=== PATIENT | male | born 1945 | race Caucasian/White ===

== ENCOUNTER → 2016-12-01 | Outpatient (CLI) | payer OTHER | LOC: BHFA 11:00 | PROVIDERS: ATTEND Internal Medicine Cardiovascular Disease | DX: I47.2 Ventricular tachycardia (principal); I49.3 Ventricular premature depolarization ==

== ENCOUNTER → 2016-12-08 | Outpatient (CLI) | payer OTHER ==
[~2016-12-08] MED LIST: GADOBUTROL 10 ML VIAL IVP ONE
--- NOTE | 2016-12-09 09:50 | MR ---
MRI Cardiac, Without and With Contrast at 1427 hours History: Ventricular tachycardia. Evaluate for ARVD. Technique: MRI was performed of the heart using a 1.5 Mai MRI system. Long and short-axis images we re obtained of the heart with FIESTA, double inversion-recovery, and triple inversion-recovery images . Multiphase postcontrast imaging was performed after 10 mL of Gadavist IV contrast. Delayed postcont rast imaging was also obtained in both planes. Findings: Cardiac chambers are normal in size. Myocardium in the left and right ventricles is normal in thickness and signal intensity. No focal wall motion abnormalities are visualized. No evidence for delayed myocardial enhancement. No evidence for pericardial effusion. Tricuspid appearance to the ao rtic valve. No evidence for thoracic aortic aneurysm. Impression: Normal MRI cardiac without and with contrast.
== END ==
LOC: FIMAGING 13:19
PROVIDERS: ATTEND Internal Medicine Cardiovascular Disease
DX: I47.2 Ventricular tachycardia (principal)
CPT/HCPCS: 75561; A9585

== ENCOUNTER 2016-12-20 07:05 | Observation (INO) | payer OTHER ==
[2016-12-20] MEDS ORDERED: MIDAZOLAM 2 MG/2 ML VIAL IVP ONE (07:13)
[2016-12-20] MEDS ORDERED: NS 1,000 ML IV ONE (07:13)
--- NOTE | 2016-12-20 07:43 | CPEKG ---
Heart Rate: 56 RR Interval: 1071 P-R Interval: 220 QRSD Interval: 86 QT Interval: 428 QTC Interval: 414 P [place]: 0 QRS [place]: -13 T Wave [place]: 28 EKG Severity - ABNORMAL ECG - EKG Impression: SINUS RHYTHM EKG Impression: FIRST DEGREE AV BLOCK Electronically Signed By: Jaguar Melo 20-Dec-2016 08:58:55
[2016-12-20] MEDS ORDERED: PROPOFOL/EMULSION 500 MG/50 ML BOTTLE IV ONE ×4 (07:44→09:43)
[2016-12-20] MEDS ORDERED: LIDOCAINE 2% 100 MG/5 ML SYR IVP ONE (07:45)
[2016-12-20] MEDS ORDERED: LIDOCAINE 1% 30 ML SDV ONE (07:55)
[2016-12-20] MEDS ORDERED: BUPIVACAINE 0.5% 30 ML SDV ONE (07:55)
[2016-12-20] MEDS ORDERED: HEPARIN 10,000 UNIT/10 ML MDV ONE (07:55)
[2016-12-20 07:59] LABS: % IMMATURE GRANULYOCYTES 0.2 % (0.0-1.1); ABSOLUTE IMMATURE GRANULOCYTES 0.01 10^3/uL (0.00-0.10); ADD DIFF? NO; ADD MORPH? NO; ADD SCAN? NO; ATYPICAL LYMPHOCYTE FLAG 0 (0-99); FRAGMENT RBC FLAG 0 (0-99); HEMATOCRIT 45.5 % (40.0-51.0); HEMOGLOBIN 15.5 g/dL (13.7-17.5); LEFT SHIFT FLG 0 (0-99); LIPEMIA HEMOLYSIS FLAG 90 (0-99); MEAN CELL HEMOGLOBIN 31.3 pg (27.9-34.1); MEAN CELL HEMOGLOBIN CONCENTR. 34.1 g/dL (32.4-36.7); MEAN CELL VOLUME 91.9 fL (81.5-99.8); MEAN PLATELET VOLUME 10.4 fL (8.7-11.7); PLATELET CLUMPS FLAG 0 (0-99); PLATELET COUNT 186 10^3/uL (150-400); RED BLOOD CELL COUNT 4.95 10^6/uL (4.40-6.38); RED CELL DISTRIBUTION WIDTH 13.4 % (11.5-15.2)
[2016-12-20 08:14] LABS: INR 1.06 (0.83-1.16); PROTIME(PATIENT) 13.7 SEC (12.0-15.0)
[2016-12-20 08:15] LABS: APTT 28.1 SEC (23.0-38.0)
[2016-12-20] MEDS ORDERED: ISOPROTERENOL HCL 0.2 MG/ML 5ML AMP ONE (09:13)
[2016-12-20 09:30] LABS: ANION GAP 11 mEq/L (8-16); CALCIUM 9.3 mg/dL (8.5-10.4); CARBON DIOXIDE 19 mEq/l (22-31); CHLORIDE 112 mEq/L (97-110); CREATININE 0.9 mg/dL (0.7-1.3); GLOMERULAR FILTRATION RATE > 60; GLUCOSE 97 mg/dL (70-100); POTASSIUM 4.6 mEq/L (3.5-5.2); SODIUM 142 mEq/L (134-144)
[2016-12-20] MEDS ORDERED: ATROPINE SULFATE 1 MG/10 ML SYR ONE (11:38)
[2016-12-20] MEDS ORDERED: ALBUTEROL 60 PUFFS/8 GM MDI IH PRN (12:02)
--- NOTE | 2016-12-20 12:02 | EPPROC ---
Electrophysiology Procedure Note: ELECTROPHYSIOLOGIC STUDY AND CATHETER MEDIATED ABLATION OF PREMATURE VENTRICULAR BEATS ORIGINATING IN THE RIGHT VENTRICULAR OUTFLOW TRACT: Procedures performed: 39332-32 EP evaluation with RA/RV/LA pace/record, with arrhythmia induction 23374-54 EP evaluation with RA/RV pace record, insert/reposition catheter, with arrhythmia induction 95248 Intracardiac catheter ablation, VT arrhythmogenic focus Fluoroscopy INDICATION: Recurrent PVC Nonsustained VT Near syncope The patient arrived in the Electrophysiology Laboratory in the fasting state. The right clavicular region, right groin, and left groin area were prepped and draped in the usual sterile manner. Appropriate non-invasive blood pressure, pulse oximetry and end-tidal CO2 monitoring was established. Anesthesiologist Dr. Arie Parsons administered propofol sedation. All catheters were placed percutaneously using the modified Seldinger technique , and advanced into position under fluoroscopic guidance. One #7 Swedish deflectable octapolar electrode catheter was advanced to the His-bundle position via the left femoral vein (2mm spacing; except the proximal ring which was 25cm from the tip used for unipolar recordings). One #7 Swedish deflectable catheter with 10 pairs of electrodes was placed via the right femoral vein into the distal coronary sinus AIV junction . One #4 Swedish sheath was placed into the left femoral artery and was used for continuous arterial blood pressure monitoring and intermittent arterial blood gas determination. Heparin was administered to keep ACT > 200 seconds. Programmed stimulation was performed from the right atrium, right ventricle and CS (left atrium). Parahisian pacing VA block. SCL 1052 ms AH 102 ms, HV 55 ms Antegrade WBB 410 ms, no slow AV Tammy pathway Retrograde (VA) block The patient arrived to the electrophysiology laboratory in normal sinus rhythm with frequent PVC. PVC morphology LBBB inferior axis with QRS transition between V3-V4. QRS duration during PVC 155 ms. PVC frequency increased with phenylephrine boluses. There was a period of idioventricular rhythm with phenylephrine bolus with PVC morphology same as during isolated PVC. Nonsustained VT 130 bpm up to 5 beats was seen to occur spontaneously. A 4 mm Navistar ablation catheter with a magnetic sensor for the Carto 3D electroanatomic mapping system was used for mapping. Mapping (during PVC) of the right ventricular outflow tract earliest ventricular activation at the posterior base of RVOT, rightward of midline. Ventricular activation began 50 ms before the onset of the QRS complex with sharp negative deflection in the unipolar electrode. RF#1 at this site terminated PVC. RF#2 and 3 were applied superior and inferior to RF#1 site. Observation for 45 minutes after the application of radiofrequency current was performed with phenylephrine boluses and during isoproterenol administration at graded doses upto 2 mcg/min, and following discontinuation of isoproterenol. Patient was recovered from anesthesia and further observation continued for 45 minutes with patient fully awake. No spontaneous ventricular extra systoles of the primary pattern seen prior to ablation were induced spontaneously or with ventricular burst pacing. There was no ventricular tachycardia inducible. Rare ventricular extra systoles with different patterns were observed but these were due to catheter manipulation or mechanical contact. The catheters were removed. Protamine was administered. The patient was transferred to the cardiovascular holding area in stable condition. Vascular access sheaths were removed in the holding area. There were no apparent complications. CONCLUSIONS: 1. Premature ventricular beats originating from right ventricular outflow tract rightward of midline, posterior. 2. Successful catheter mediated ablation of the premature ventricular beats. 3. No apparent complications. Patient Problems: Problems Problem Status Onset Ventricular arrhythmia Acute
--- NOTE | 2016-12-20 12:19 | CPEKG ---
Heart Rate: 60 RR Interval: 1000 P-R Interval: 212 QRSD Interval: 84 QT Interval: 416 QTC Interval: 416 P [place]: 9 QRS [place]: -6 T Wave [place]: 31 EKG Severity - ABNORMAL ECG - EKG Impression: SINUS RHYTHM EKG Impression: PROBABLE INFERIOR INFARCT, OLD EKG Impression: FIRST DEGREE AVB Electronically Signed By: Ebenezer Wilson 21-Dec-2016 08:36:17
[2016-12-20] MEDS ORDERED: OXYCODONE/APAP 5/325 TAB PO PRN (12:27)
[2016-12-20] MEDS ORDERED: ACETAMINOPHEN 325 MG TAB PO PRN (12:27)
[2016-12-20] MEDS ORDERED: ONDANSETRON 4 MG/2 ML VIAL IVP PRN (12:27)
[2016-12-20 13:46] LABS: ANION GAP 8 mEq/L (8-16); CALCIUM 8.5 mg/dL (8.5-10.4); CARBON DIOXIDE 24 mEq/l (22-31); CHLORIDE 111 mEq/L (97-110); CREATININE 0.9 mg/dL (0.7-1.3); GLOMERULAR FILTRATION RATE > 60; GLUCOSE 90 mg/dL (70-100); MAGNESIUM 1.8 mg/dL (1.6-2.3); POTASSIUM 4.1 mEq/L (3.5-5.2); SODIUM 143 mEq/L (134-144)
[2016-12-20] MEDS ORDERED: ASPIRIN 81 MG CHEWABLE TAB PO SCH (19:00)
[2016-12-20] MEDS ORDERED: NON-FORMULARY NEW DRUG (Loratadine [Claritin 10 Mg] 10 MG) PO SCH (21:00)
[2016-12-20] MEDS ORDERED: MONTELUKAST SODIUM 10 MG TAB PO SCH (21:00)
[2016-12-20] MEDS ORDERED: NON-FORMULARY NEW DRUG (Dexlansoprazole [Dexilant] 60 MG) PO SCH (21:00)
[2016-12-20] MEDS ORDERED: CETIRIZINE 10 MG TAB PO SCH (21:00)
[2016-12-20] MEDS ORDERED: PANTOPRAZOLE SODIUM 40 MG TAB PO SCH (21:00)
[2016-12-21 05:05] VITALS: RESP 18
[2016-12-21 05:10] LABS: % IMMATURE GRANULYOCYTES 0.1 % (0.0-1.1); ABSOLUTE IMMATURE GRANULOCYTES 0.01 10^3/uL (0.00-0.10); ADD DIFF? NO; ADD MORPH? NO; ADD SCAN? NO; ATYPICAL LYMPHOCYTE FLAG 0 (0-99); FRAGMENT RBC FLAG 0 (0-99); HEMOGLOBIN 14.2 g/dL (13.7-17.5); LEFT SHIFT FLG 0 (0-99); LIPEMIA HEMOLYSIS FLAG 90 (0-99); MEAN CELL HEMOGLOBIN 31.3 pg (27.9-34.1); MEAN CELL HEMOGLOBIN CONCENTR. 33.8 g/dL (32.4-36.7); MEAN CELL VOLUME 92.7 fL (81.5-99.8); MEAN PLATELET VOLUME 10.7 fL (8.7-11.7); PLATELET CLUMPS FLAG 0 (0-99); PLATELET COUNT 177 10^3/uL (150-400); RED BLOOD CELL COUNT 4.53 10^6/uL (4.40-6.38); RED CELL DISTRIBUTION WIDTH 13.5 % (11.5-15.2)
[2016-12-21 05:18] LABS: ANION GAP 8 mEq/L (8-16); CARBON DIOXIDE 25 mEq/l (22-31); CHLORIDE 106 mEq/L (97-110); GLOMERULAR FILTRATION RATE > 60; GLUCOSE 82 mg/dL (70-100); POTASSIUM 4.4 mEq/L (3.5-5.2); SODIUM 139 mEq/L (134-144)
[2016-12-21 05:27] LABS: CREATINE KINASE-MB FRACTION 1.24 ng/mL (0-3.19); TROPONIN I 0.153 ng/mL (0-0.034)
[2016-12-21 05:28] LABS: INR 1.13 (0.83-1.16); PROTIME(PATIENT) 14.4 SEC (12.0-15.0)
[2016-12-21 07:36] VITALS: BP 109/74; PULSE 58; TEMP 98.3; O2SAT 95
[2016-12-21] MEDS ORDERED: ATORVASTATIN CALCIUM 40 MG TAB PO SCH (09:00)
--- NOTE | 2016-12-21 09:05 | CPEKG ---
Heart Rate: 54 RR Interval: 1111 P-R Interval: 196 QRSD Interval: 90 QT Interval: 448 QTC Interval: 425 P [place]: 5 QRS [place]: -13 T Wave [place]: 34 EKG Severity - OTHERWISE NORMAL ECG - EKG Impression: SINUS RHYTHM EKG Impression: VENTRICULAR PREMATURE COMPLEX Electronically Signed By: Jaguar Melo 21-Dec-2016 11:11:44
--- NOTE | 2016-12-21 11:11 | ECHO ---
[id number] + + [address] : : [place] [address] : : [phone] + + Adult Echocardiographic Report + ---------+ :Name: JOSE E ROGER RStudy Date: 12/21/2016 08:25 AM : : Hospital Admission Number: [id number] Jessica merchant: [birth year]: :: 1945 Gender: Male Height: 71 i n : :Age: 71 yrs Race: WH Weight: 178 lb : :Reason For Study: F/U post EP study : : BSA: 2.0 met ers2 : + ---------+ MMode/2D Measurements \T\ Calculations IVSd: 0.84 cm LVIDd: 4.8 cmFS: 40.9 % LVLd ap4: 9.0 cm LVPWd: 0.81 cm LVIDs: 2.8 cmEDV(Teich): 105.7 mlEDV(MOD-sp4): 59.0 ml ESV(Teich): 30.0 ml LVLs ap4: 7.3 cm EF(Teich): 71.6 % ESV(MOD-sp4): 17.0 ml EF(MOD-sp4): 71.2 % SV(MOD-sp4): 42.0 ml Normal Measurement Values: + + :LVIDd (3.5-5.7cm) IVSd (0.6-1.1cm) LVPWd (0.6-1.1cm) Aortic Root (2.0-3.7cm)Left Atrium (1.5-4.0cm): :LV Vol(d) (76-115ml) LV Vol(s) (29-48ml) E[place]ec Fraction (50-65%)PV [place] (0.6- 1.2m/s) TV [place] (0.4-1.0m/s) : :MV E [place] (0.8-1.0m/s)MV A [place] (0.3-1.0m/s)LVOT [place] (0.7-1.2m/s) Asc Ao [place] ( 0.9-1.8m/s) : + + Doppler Measurements \T\ Calculations MV E max chalo: Ao mean PG: PA V2 max: TR max chalo: 66.1 cm/sec 4.7 mmHg 111.3 cm/sec 238.9 cm/sec MV A max chalo: Ao V2 mean: PA max PG: TR max P.5 cm/sec 103.8 cm/sec 5.0 mmHg 22.8 mmHg MV E/A: 0.85 Ao V2 VTI: 32.5 cm RAP systole: 5.0 mmHg RVSP(TR): 27.8 mmHg Left Ventricle The left ventricle is normal in size and function. There is mild concentric left ventricular hypertrophy. Left ventricular systolic function is normal. Ejection Fraction = 70-75%. No regional wall motion abnormalities noted. Right Ventricle The right ventricle is normal in size and function. Atria The left atrial size is normal. Right atrial size is normal. The interatrial septum is intact with no evidence for an atrial septal defect. Mitral Valve Calcification seen on anterior mitral leaflet. There is no evidence of mitral valve prolapse. There is no mitral valve stenosis. Tricuspid Valve Normal tricuspid valve. There is mild tricuspid regurgitation. Right ventricular systolic pressure is normal. Aortic Valve The aortic valve is trileaflet. The aortic valve opens well. There is no aortic stenosis. There is no aortic insufficiency. Pulmonic Valve The pulmonic valve is normal in structure and function. There is no pulmonic valvular regurgitation. Great Vessels The aortic root is normal size. Pericardium/Pleural There is no pericardial effusion. There is a fat pad seen. Conclusion A complete two-dimensional transthoracic echocardiogram was performed (2D, M-mode, Doppler and color flow Doppler). The left ventricle is normal in size and function. Left ventricular systolic function is normal. There is mild concentric left ventricular hypertrophy. Ejection Fraction = 70-75%. Calcification seen on anterior mitral leaflet. There is mild tricuspid regurgitation. Right ventricular systolic pressure is normal. There is a fat pad seen. There is no pericardial effusion. Final Reading Physician: Jaguar Melo MD electronically signed on 12/21/2016 11:10 AM Ordering Physician: Jaguar Melo Performed By: Suzanne Benitze, [facility]
--- NOTE | 2016-12-21 12:23 | GDS ---
[f rep st] DISCHARGE SUMMARY ADMISSION DIAGNOSES: 1. Frequent premature ventricular contractions. 2. Nonsustained ventricular tachycardia. 3. Near syncope. 4. Non flow-limiting coronary artery disease. 5. Hyperlipidemia. DISCHARGE DIAGNOSES: 1. Premature ventricular contractions. 2. Status post electrophysiology study with PVC ablation. 3. Non flow-limiting coronary artery disease. 4. Hyperlipidemia. PROCEDURES DONE DURING HOSPITALIZATION: 1. Electrocardiogram. 2. Electrophysiology study. 3. Successful catheter mediated ablation of premature ventricular beats coming from RV OT. 4. Echocardiogram. BRIEF HISTORY: Please see H and P. The patient is a 71-year-old male who reports tightness in his throat and shortness of breath, underwent coronary catheterization, found that he had non flow-limit ing CAD. He had had an event monitor that showed he had frequent PVCs, with episodes of 10 beaded n onsustained ventricular tachycardia. He was referred to Dr. Melo who evaluated, and felt that he was an appropriate candidate to undergo electrophysiology study, and potentially ablation. HOSPITAL COURSE: Patient was admitted through CVC, prepped for procedure and taken to electrophysio logy suite. There patient underwent electrophysiology study, which successfully identified PVCs tiburcio ginating in the RV OT. Dr. Melo then proceeded on with intervention with successful catheter mediate d ablation of premature ventricular beats. No apparent complications. Patient was transferred back to the CVC and ultimately to the PCU for overnight observation. There he has remained in sinus rhy thm. Denies any chest pain, shortness of breath, or symptoms or lightheadedness. Reports no furthe r episodes of palpitations. Cardiac monitoring showed that he has remained in sinus rhythm with rar e premature ventricular contraction. No other pauses or arrhythmia noted. He has been up walking t he unit without any symptoms. PHYSICAL EXAMINATION: Today, GENERAL APPEARANCE: Tall, well-groomed male. He is alert, oriented to person, place, time, and situation. Appears to be in no acute distress. VITAL SIGNS: Current vital signs are blood pressure 109/74, heart rate is 58, sinus rhythm on the monitor. Respi rations 18, saturating 95% on room air. Temperature 36.8 degree Celsius. HEENT: Head is normoceph alic. Lips and tongue are pink and moist with no signs of cyanosis. Conjunctivae pink. NECK: Tra vilma is midline, +2 carotid pulses bilateral. No auscultated bruits, no jugular vein distention. R ESPIRATORY: Lungs clear to auscultation, no rhonchi, rales, wheezes, no accessory muscle use, no in tercostal muscle retraction. CARDIAC: Regular rate, regular rhythm, S1, S2. No S3, S4, murmur, ru b or gallop noted. ABDOMEN: Soft, nontender, bowel sounds x4 quadrants. No organomegaly and no pa lpable masses. SKIN: [place], warm, dry, no cyanosis, no clubbing, no peripheral edema. Catheter insertion site, bilateral groin sites: No redness, swelling, drainage, ecchymosis or hemat roby noted. No auscultated bruit on either site. VASCULAR: +2 carotid pulses bilateral, +2 radial pulses bilateral, +2 dorsal pedal and posterior tibial pulses bilateral. CMS checks within normal l imits to lower extremity. NEURO: Cranial nerves 2-12 grossly intact. LABORATORY: Current laboratory studies show: WBC of 7.36, hemoglobin of 14.2, hematocrit of 42.0, platelet count 177. INR is 1.13. Sodium 134, potassium 4.4, chloride 106, CO2 22, BUN 23, creatini ne 1.0, glucose 82, calcium 9.0. CK was 55, CK-MB fraction was 1.24. Troponin was 1.53 this mornin g, which was expected to be elevated post ablation. STUDIES: Electrophysiology and ablation as mentioned above, electrocardiogram done today this morni ng shows sinus bradycardia, with noted Q-waves in 2 and AVF, questioning old myocardial infarction. Rare premature ventricular contraction noted. Echocardiogram: Preliminary results: Patient noted to have normal LV systolic function with no wall motion abnormalities. Normal ejection fraction, w ith no significant valvular heart disease. DISCHARGE DISPOSITION: Patient being discharged home in stable condition. He is under activity res trictions of not lifting more than 10 pounds for the next week, no strenuous activity for the next 2 weeks. DISCHARGE MEDICATIONS: Please see discharge medication list. Note, patient has been told that he s hould continue taking anti-platelet therapy of aspirin of 162 mg p.o. daily. DISCHARGE INSTRUCTIONS: Post electrophysiology/ablation, discharge instructions went over with the patient, including monitoring for signs of infection, activity restrictions, medications precaution, thrombolic event protection with patient getting up every 35-45 minutes and walking, while awake fo r the next 6 weeks, and medication compliance. He has a followup appointment set with Dr. Melo in 1 month's time. He has been told that if any problems or concerns come up post discharge, he is to ca ll our office or return to the hospital or seek medical attention. At the time of discharge, patien t and family all verbalized understanding. Total time spent on discharge greater than 30 minutes. /[id number]/MODL
== END 2016-12-21 12:29 | disposition home or self-care (01) ==
LOC: FCATH 07:05 → F2W 12:27
PROVIDERS: ADMIT Internal Medicine Cardiovascular Disease; ATTEND Internal Medicine Cardiovascular Disease
PROC: 025K3ZZ Destruction of Right Ventricle, Percutaneous Approach (ICD-10-PCS; principal; 2016-12-20)
PROC: 4A023FZ Measurement of Cardiac Rhythm, Percutaneous Approach (ICD-10-PCS; 2016-12-20)
PROC: 5A1213Z Performance of Cardiac Pacing, Intermittent (ICD-10-PCS; 2016-12-20)
PROC: 02H73MZ Insertion of Cardiac Lead into Left Atrium, Percutaneous Approach (ICD-10-PCS; 2016-12-20)
DX: I49.3 Ventricular premature depolarization (principal); I47.2 Ventricular tachycardia; R55 Syncope and collapse; I25.10 Atherosclerotic heart disease of native coronary artery without angina pectoris; J45.909 Unspecified asthma, uncomplicated; E78.5 Hyperlipidemia, unspecified; Z82.49 Family history of ischemic heart disease and other diseases of the circulatory system; Z87.442 Personal history of urinary calculi
CPT/HCPCS: 93005; 93306; 93621; 93623; 93654; C1731; C1732; J0461; J1644; J2001; J2704

== ENCOUNTER → 2017-02-01 | Outpatient (CLI) | payer OTHER | LOC: BHFA 13:15 | PROVIDERS: ATTEND Internal Medicine Cardiovascular Disease | DX: I49.3 Ventricular premature depolarization (principal) ==

== ENCOUNTER → 2017-02-07 | Outpatient (CLI) | payer OTHER | LOC: BHFA 09:00 | PROVIDERS: ATTEND Internal Medicine | DX: I49.3 Ventricular premature depolarization (principal) ==

== ENCOUNTER 2017-08-11 07:54 | Day surgery (SDC) | payer OTHER ==
[2017-08-11] MEDS ORDERED: LIDOCAINE 1% 300 MG/30 ML SDV SC ONE (08:19)
--- NOTE | 2017-08-11 09:50 | PDHPUP ---
History & Physical Update H&P update statement: This history and physical update is based on an assessment of the patient which was completed after admission or registration (within 24 hours), but prior to the surgery/procedure. H&P update: H&P reviewed & patient examined, no change in patient's condition since H&P completed
--- NOTE | 2017-08-11 09:50 | PDPROPOC ---
Sedation Plan of Care Sedation Plan of Care: vital signs stable ASA Classification: ASA 1 Planned drugs: other Mallampati Score: Class 1 Mallampati Reference Image: Patient passed 3-3-2 rule?: Yes
--- NOTE | 2017-08-11 15:10 | CPIP ---
[f rep st] INVASIVE CARDIAC PROCEDURE DATE OF PROCEDURE: 08/11/2017 INDICATION: The patient is 72 years old with a history of PVC ablation. He presents now with recurr ent symptoms of palpitations with concerns for nonsustained ventricular tachycardia or possibly atria l fibrillation/flutter. PROCEDURE: Implantation of a Medtronic LINQ. TECHNIQUE: Following informed consent and in the fasting state, the patient was brought to the CVC. The left 4th intercostal space was identified by palpation. 1% lidocaine was infiltrated and a 1 cm incision was made. The Medtronic LINQ was then injected under the skin and the wound closed with 2 klever. COMPLICATIONS: None. DISPOSITION: The patient will be recovered here in the CVC and discharged home later today. /[id number]/MODL
== END 2017-08-11 10:23 | disposition home or self-care (01) ==
LOC: FCATH 07:54 → EDSTATUS 12:29
PROVIDERS: ATTEND Internal Medicine Cardiovascular Disease
PROC: 0JH60PZ Insertion of Cardiac Rhythm Related Device into Chest Subcutaneous Tissue and Fascia, Open Approach (ICD-10-PCS; principal; 2017-08-11)
DX: I25.10 Atherosclerotic heart disease of native coronary artery without angina pectoris (principal); I49.3 Ventricular premature depolarization; I47.2 Ventricular tachycardia; J45.909 Unspecified asthma, uncomplicated; J30.9 Allergic rhinitis, unspecified; E78.5 Hyperlipidemia, unspecified; K21.9 Gastro-esophageal reflux disease without esophagitis
CPT/HCPCS: 33282; C1764

== ENCOUNTER → 2018-06-25 | Outpatient (CLI) | payer OTHER | DX: I48.91 Unspecified atrial fibrillation (principal) ==

== ENCOUNTER → 2018-08-13 | Outpatient (CLI) | payer OTHER | LOC: BHFA 15:00 | PROVIDERS: ATTEND Internal Medicine Cardiovascular Disease | DX: I25.10 Atherosclerotic heart disease of native coronary artery without angina pectoris (principal); I49.3 Ventricular premature depolarization; I47.2 Ventricular tachycardia; E78.5 Hyperlipidemia, unspecified ==